=== PATIENT | male | born 1945 | race Caucasian/White ===

== ENCOUNTER → 2017-04-20 | Outpatient (CLI) | payer MEDICARE ==
--- NOTE | 2017-04-22 12:40 | PE ---
EXAMINATION TYPE: PET CT fusion skull to thigh DATE OF EXAM: 04/20/2017 CLINICAL HISTORY: Head and neck cancer progress study. Completed chemotherapy and radiation treatment in March 2016. Initially diagnosed in 2016. TECHNIQUE: Following the intravenous administration of 15.51 mCi of F-18 FDG, whole body images are performed from the skull base to the midthigh. Images are reviewed on the computer in the coronal, axial, and sagittal planes. Reconstructed rotating images are created on independent workstation and reviewed on the computer. A non-contrast CT is performed in conjunction with the PET scan. Dedicat ed neck imaging is performed. COMPARISON: Most recent outside PET/CT December 31, 2016 FINDINGS: SKULL BASE AND NECK: There is new enlarged abnormal hypermetabolic right-sided neck lymph node at le lul of hyoid bone measuring 2.7 x 1.4 cm on axial image 55 with max SUV of 11.18. Along the anterior margin at this level there is suspected second subcentimeter hypermetabolic lymph nodes with max SUV of 12.86 also near axial image 55. There is blurring of fat planes on corresponding CT. Superior to this in the floor of mouth there are 2 areas of abnormal hypermetabolic uptake, one to th e left of midline more anteriorly measures roughly 2 cm on long axis, max SUV is 11.0 on axial image 46. One more posterior right of midline near the oral pharyngeal airway measures approximately 1.7 cm on long axis with max SUV of 15.04. CHEST, MEDIASTINUM, AND HILAR REGION: Spiculated nodule left lung apex medially measures approximatel y 10 x 5 mm on axial image 78 and is a metabolic, it is grossly stable. There are however new multiple hypermetabolic pleural-based nodules. For reference there is now hype rmetabolic uptake in pleural-based nodule anterior medial and inferior to this invading the mediastin um measuring approximately 16 x 8 mm on axial image 80, max SUV is 9.76. There is new hypermetabolic pleural-based nodule measuring 16 x 7 mm on axial image 90 with max SUV o f 7.11. There is new small left pleural fluid collection that does not completely layer dependently. There ar e additional new hypermetabolic foci of pleural-based nodularity. There is new 1.2 x 1.1 cm lateral left basilar nodule abutting pleura on axial image 134 with max SUV of 4.56. There is new hypermetabolic subcarinal lymph node measuring 2.3 x 1.8 cm on axial image 102 with max SUV of 9.29. Favor the anterior left lung hypermetabolic areas correlate with pleural-based neoplasm rather than a bnormal intramammary lymph nodes in retrospect. ABDOMEN AND PELVIS: Right hepatic dome lesion measures 3.2 cm on long axis axial image 135 with incre ased hypermetabolic uptake, max SUV is 5.49. More central left hepatic lobe ill-defined hypodense lesion measures approximately 2.9 cm on long axi s axial image 137 with max SUV of 7.04. No new hypermetabolic abdominal or pelvic lesions are clearly seen. OSSEOUS STRUCTURES: No new hypermetabolic osseous lesions are identified. OTHER CT: There is moderate calcified plaque at bilateral carotid bulbs redemonstrated. There is stable right subclavian Mediport catheter. Coronary artery calcification is redemonstrated. Marker in liver from prior biopsy causing streak artifact is again seen. Colonic diverticulosis most pronounced at sigmoid colon is redemonstrated. Enlarged prostate gland consistent with BPH is redemonstrated. Marked facet arthropathy in the lower lumbar spine most prominent right lumbosacral junction is again seen. Multilevel spurring in the thoracolumbar spine is again identified. IMPRESSION: Neoplastic progression locally in the neck and throughout the thorax is present as detail ed above. Liver lesions are stable. No new lesions in the abdomen and pelvis or osseous structures ar e identified.
== END | disposition home or self-care (01) ==
LOC: RADPETMAIN 14:35
PROVIDERS: ATTEND Internal Medicine Hematology & Oncology
DX: C02.9 Malignant neoplasm of tongue, unspecified (principal); K76.9 Liver disease, unspecified
CPT/HCPCS: 78815; A9552